=== PATIENT | male | born 1955 ===

== ENCOUNTER 2019-03-03 07:35 | Outpatient (CLI) | payer OTHER ==
[~2019-03-03] VITALS: Ht 180.3 cm; Wt 101.8 kg
[2019-03-03 06:25] VITALS: BP 123/80
[~2019-03-03 07:35] MED LIST: CARV3.1212 PO; DILT180T3 PO; DULA0.75 SC; EMPA10TA PO; FENO135C4 PO; INSU300I3 SC; IRBE300T16 PO; RIVA20TA PO; SERT100T32 PO; SERT25TA3 PO
== END 2019-03-03 07:36 | disposition home or self-care (01) ==
LOC: CLISVCS 07:35 → EDSTATUS 11:15
PROVIDERS: ATTEND Internal Medicine Cardiovascular Disease
DX: I48.91 Unspecified atrial fibrillation (principal); Z53.9 Procedure and treatment not carried out, unspecified reason; I10 Essential (primary) hypertension; Z79.82 Long term (current) use of aspirin; Z88.8 Allergy status to other drugs, medicaments and biological substances; Z88.1 Allergy status to other antibiotic agents; Z91.041 Radiographic dye allergy status
CPT/HCPCS: 93005

== ENCOUNTER → 2019-05-19 | Outpatient (CLI) | payer OTHER | END | disposition home or self-care (01) | LOC: CVU 06:51 | PROVIDERS: ATTEND Internal Medicine Cardiovascular Disease | DX: I08.1 Rheumatic disorders of both mitral and tricuspid valves (principal); I48.92 Unspecified atrial flutter | CPT/HCPCS: 93306 ==